=== PATIENT | female | born 1935 | race Caucasian/White ===

== ENCOUNTER 2021-02-21 12:24 | Observation (INO) ==
[2021-02-21] MEDS: Nitroglycerin 0.4 MG TAB.SUBL SL SCH ×2 (13:36→20:25)
[2021-02-21] MEDS: 0.9 % Sodium Chloride 1,000 ML IVC SCH ×2 (13:36→21:58)
[2021-02-21 13:52] LABS: Basophils # 0.1 K/mcL (0.0-0.2); Basophils % 0.8 %; Eosinophils # 0.2 K/mcL (0.0-0.6); Hematocrit 35.3 % (35.3-44.9); Hemoglobin 11.7 g/dL (11.5-15.4); Immature Granulocytes % 0.3 % (0-4); Lymphocytes # 1.2 K/mcL (0.6-4.6); Lymphocytes % 13.3 %; Mean Corpuscular HGB Conc 33.1 g/dL (31.6-35.5); Mean Corpuscular Hemoglobin 31.2 pg (28.0-33.3); Mean Corpuscular Volume 94.1 fL (83.0-100.0); Mean Platelet Volume 9.4 fL (9.4-12.4); Monocytes # 0.6 K/mcL (0.0-1.3); Monocytes % 6.2 %; Neutrophils # 7.2 K/mcL (1.6-8.9); Platelet Count 243 K/mcL (140-400); Red Blood Count 3.75 M/mcL (3.82-4.97); Red Cell Distribution Width 14.5 % (11.5-14.5); Segmented Neutrophils % 77.4 %; White Blood Count 9.3 K/mcL (4.3-11.1)
[2021-02-21 14:00] LABS: Prothrombin Time 11.7 Seconds (9.4-12.1)
[2021-02-21 14:02] LABS: Activated Partial Thrombo Time 27.7 Seconds (26.0-36.0)
[2021-02-21 14:22] LABS: Calcium 9.9 mg/dL (8.6-10.3); Potassium 3.8 mEq/L (3.5-5.1); Troponin I 0.04 ng/mL (< 0.04)
[2021-02-21] MEDS ORDERED: Isovue-370 500 ML BOTTLE IVP ONE (14:22)
[2021-02-21 14:47] LABS: Bilirubin,Urine Negative (Negative); Blood,Urine Negative (Negative); Clarity,Urine Clear (Clear); Color,Urine Light-Yellow (Yellow); Glucose,Urine (UA) Normal (Normal); Hyaline Casts,Urine Moderate per lpf (None Seen); Ketones,Urine Negative (Negative); Leukocyte Esterase,Urine Negative (Negative); Mucus,Urine Few per lpf (None-Few); Nitrite,Urine Negative (Negative); Protein,Urine 30 mg/dL (Neg-Trace); RBC,Urine 0-3 per hpf (0-3); Specific Gravity,Urine 1.024 (1.010-1.025); Squamous Epithelial Cell,Urine Moderate per hpf (None-Few); Transitional Epi Cells,Urine Few per hpf (None-Few); Urobilinogen,Urine Normal (Normal); WBC,Urine 0-3 per hpf (0-3)
[2021-02-21 18:40] LABS: Influenza A PCR Negative (Negative); Influenza B PCR Negative (Negative); Resp. Syncytial Virus PCR Negative (Negative)
[2021-02-21 18:42] LABS: SARS-CoV-2 by PCR (In House) Negative (Negative)
[2021-02-21] MEDS ORDERED: ALPRAZolam 0.25 MG TABLET PO PRN (20:16)
[2021-02-21] MEDS ORDERED: Perflutren Lipid Microsphere 1.3 ML in 0.9 % Sodium Chloride 8.7 ML IVP PRN (20:16)
[2021-02-21] MEDS ORDERED: Morphine Sulfate 2 MG/ML SYRINGE IVP ONE (20:18)
[2021-02-21] MEDS ORDERED: Acetaminophen 325 MG TABLET PO PRN (20:22)
[2021-02-21] MEDS ORDERED: Ondansetron 4 MG/2 ML VIAL IVP PRN (20:22)
[2021-02-21] MEDS ORDERED: Naloxone 0.4 MG/ML INJ IVP PRN (20:22)
[2021-02-21] MEDS: *HR* Heparin 5,000 UNIT/ML VIAL SQ SCH (21:29)
[2021-02-21] MEDS: Gabapentin 300 MG CAPSULE PO SCH (21:29)
[2021-02-21] MEDS ORDERED: Aspirin Enteric Coated 325 MG Tablet PO ONE (22:03)
[2021-02-22 03:36] LABS: Hematocrit 30.3 % (35.3-44.9); Hemoglobin 9.9 g/dL (11.5-15.4); Mean Corpuscular HGB Conc 32.7 g/dL (31.6-35.5); Mean Corpuscular Hemoglobin 30.7 pg (28.0-33.3); Mean Corpuscular Volume 94.1 fL (83.0-100.0); Mean Platelet Volume 9.2 fL (9.4-12.4); Platelet Count 200 K/mcL (140-400); Red Blood Count 3.22 M/mcL (3.82-4.97); Red Cell Distribution Width 14.4 % (11.5-14.5); White Blood Count 8.9 K/mcL (4.3-11.1)
[2021-02-22 03:41] LABS: Prothrombin Time 12.1 Seconds (9.4-12.1)
[2021-02-22 03:44] LABS: Activated Partial Thrombo Time 26.7 Seconds (26.0-36.0)
[2021-02-22 03:55] LABS: Chol/HDL Ratio 3.2 (0-4.9); Magnesium 1.8 mg/dL (1.6-2.6)
[2021-02-22 04:20] LABS: Troponin I 0.04 ng/mL (< 0.04)
[2021-02-22 04:23] LABS: Folate > 22.3 ng/mL (3.0-16.0); Vitamin B12 271 pg/mL (250-1100)
[2021-02-22 04:40] LABS: Thyroid Stimulating Hormone 1.059 mcIU/mL (0.340-5.600)
[2021-02-22 05:16] LABS: Estimated Average Glucose 117 mg/dl; Hemoglobin A1C 5.7 %
[2021-02-22] MEDS: *HR* Heparin 5,000 UNIT/ML VIAL SQ SCH ×2 (05:43→14:47)
[2021-02-22] MEDS ORDERED: NON-FORMULARY MEDICATION 1 EACH EACH (Vit A/C/E Ac/Znox/Cupric Oxide [Eye Vitamin-Minerals PO SCH (09:00)
[2021-02-22] MEDS: Gabapentin 300 MG CAPSULE PO SCH ×2 (09:56→21:06)
[2021-02-22] MEDS: Famotidine 20 MG TABLET PO SCH (09:56)
[2021-02-22] MEDS: allopurinoL 100 MG TABLET PO SCH (09:56)
[2021-02-22] MEDS: Aspirin Enteric Coated 81 MG Tablet PO SCH (09:57)
[2021-02-22] MEDS: Multivit/Ca/Min/Fe/FA 1 TAB TABLET PO SCH (09:58)
[2021-02-22] MEDS: Furosemide 20 MG TABLET PO SCH (09:58)
[2021-02-22] MEDS: amLODIPine 5 MG TABLET PO SCH (09:58)
[2021-02-22] MEDS: calcitrioL 0.25 MCG CAPSULE PO SCH (09:59)
[2021-02-22] MEDS: Metoprolol XL (24 HR) Succ 25 MG TAB.ER.24H PO SCH (09:59)
[2021-02-22] MEDS: Cholecalciferol (D-3) 1,000 UNIT (25MCG) TABLET PO SCH (09:59)
[2021-02-22] MEDS ORDERED: Regadenoson 0.4 MG/5 ML SYRINGE IVP ONE (12:13)
[2021-02-22] MEDS: Apixaban 5 MG TABLET PO SCH (21:06)
[2021-02-23 02:18] LABS: Hematocrit 30.9 % (35.3-44.9); Hemoglobin 9.9 g/dL (11.5-15.4); Mean Corpuscular Hemoglobin 30.2 pg (28.0-33.3); Mean Corpuscular Volume 94.2 fL (83.0-100.0); Mean Platelet Volume 9.8 fL (9.4-12.4); Platelet Count 203 K/mcL (140-400); Red Blood Count 3.28 M/mcL (3.82-4.97); Red Cell Distribution Width 14.4 % (11.5-14.5); White Blood Count 6.5 K/mcL (4.3-11.1)
[2021-02-23 02:48] LABS: Calcium 9.4 mg/dL (8.6-10.3); Potassium 3.8 mEq/L (3.5-5.1)
[2021-02-23 04:34] VITALS: PULSE 65; O2SAT 96
[2021-02-23 07:50] VITALS: BP 173/85; TEMP 97.7
[2021-02-23] MEDS: allopurinoL 100 MG TABLET PO SCH (08:29)
[2021-02-23] MEDS: Aspirin Enteric Coated 81 MG Tablet PO SCH (08:29)
[2021-02-23] MEDS: calcitrioL 0.25 MCG CAPSULE PO SCH (08:30)
[2021-02-23] MEDS: Cholecalciferol (D-3) 1,000 UNIT (25MCG) TABLET PO SCH (08:30)
[2021-02-23] MEDS: Apixaban 5 MG TABLET PO SCH (08:30)
[2021-02-23] MEDS: Gabapentin 300 MG CAPSULE PO SCH (08:30)
[2021-02-23] MEDS: Metoprolol XL (24 HR) Succ 25 MG TAB.ER.24H PO SCH (08:30)
[2021-02-23] MEDS: Multivit/Ca/Min/Fe/FA 1 TAB TABLET PO SCH (08:30)
[2021-02-23] MEDS: Furosemide 20 MG TABLET PO SCH (08:30)
[2021-02-23] MEDS: amLODIPine 5 MG TABLET PO SCH (08:31)
[2021-02-23] MEDS: Famotidine 20 MG TABLET PO SCH (08:31)
== END 2021-02-23 10:57 | disposition home or self-care (01) ==
LOC: EMEROOARM 12:24 → 2ANU 12:24
PROVIDERS: ADMIT Internal Medicine; ATTEND Internal Medicine